=== PATIENT | male | born 2000 | race Caucasian/White ===

== ENCOUNTER 2024-02-21 19:50 | Emergency (ER) | payer BC, SELFPAY ==
[2024-02-21 19:54] VITALS: BP 117/77
[2024-02-21 22:37] LABS: Urine Albumin Negative (Neg - Trace); Urine Bilirubin Negative (Negative); Urine Character Clear (Clear); Urine Color Yellow; Urine Glucose Negative (Negative); Urine Ketone Negative (Negative); Urine Leukocyte Negative (Negative); Urine Nitrite Negative (Negative); Urine Occult Blood Negative (Negative); Urine Urobilinogen 2+ (Neg - 1+)
--- NOTE | 2024-02-21 23:28 | ED.GENMED ---
History of Present Illness
General
Chief Complaint: Male Genito-Urinary Symptoms
Source: patient
Exam Limitations: none
Time Seen by Provider: 02/21/24 22:27
Nursing documentation reviewed up to this point in time: agreed with
History of Present Illness
History of Present Illness:
Patient is a 23-year-old male who presents to the emergency department complaining of right testicular pain that started over the past few days but got rather intense this evening. Patient denies any dysuria, hematuria, frequency or urgency.
Patient denies any flank pain patient does state he has some pain going into the right inguinal region. Patient denies any recent illnesses or injuries. Patient denies any previous history of similar episodes. Patient does have a child. Patient
denies any weight loss. Patient denies any fever or chills.
Past History
Past History
ED Past Medical History: None
Social History
Tobacco: Non-smoker
Review of Systems
Review of Systems
All Other Systems: ROS reviewed and negative except as documented in HPI and ROS
Constitutional: Denies fever, weight loss or chills
ABD/GI: Reports abdominal pain; Denies nausea, vomiting, diarrhea or anorexia
: Reports other (Right testicular pain); Denies dysuria, frequency, flank pain, difficulty voiding, urgency, bleeding, dark urine or discharge
Musculoskeletal: Denies back pain
Skin: Reports no symptoms
Phy Exam
Physical Exam
Physical Exam:
Physical Exam
General: No apparent distress, alert and appropriate, well nourished, well hydrated
HENT: Normocephalic, supple with no lymphadenopathy, no thyromegaly
Eyes: Clear sclera, conjuctiva without injection
Abdomen: Soft, nontender, no organomegaly, no CVA tenderness, BS good. No inguinal hernia. Circumcised penis with both testicles descended and positive cremasteric reflexes bilaterally. However the patient does have a
varicocele on the right. No testicular masses or tenderness
Neuro: Alert and oriented x 3, CN II - XII intact, no motor focality, no cerebellar dysfunction
Skin: no rash
Psychiatric: well kept. interactive and cooperative
Extremities: No edema, cyanosis, tenderness, Good and equal peripheral pulses.
Course
Orders/Labs/Results
Orders:
Orders
02/21/24 19:53
Scrotum US [US Scrotum] Urgent
Comment:
Reason For Exam: right testicle pain for 12 hours
02/21/24 22:25
Urinalysis Reflex To Culture Urgent
Date Specimen was Collected: 02/21/24
Time Specimen was Collected: 19:54
Abnormal Lab Results
02/21/24
22:25
Urine Urobilinogen 2+ A
(Neg - 1+)
Vital Signs
Initial and Last Documented VS:
Initial Vital Signs
Temp Pulse Resp BP Pulse Ox
98.5 F 84 18 117/77 97
02/21/24 19:54 02/21/24 19:54 02/21/24 19:54 02/21/24 19:54 02/21/24 19:54
Last Documented Vital Signs
Temp Pulse Resp BP Pulse Ox
98.5 F 84 18 117/77 97
02/21/24 19:54 02/21/24 19:54 02/21/24 19:54 02/21/24 19:54 02/21/24 19:54
*Radiology
Radiology exam reviewed: radiology read reviewed (Varicocele on the right)
*Pulse Oximetry
Patient hypoxic: no
*EKG
Interpreted by ED Provider?: NA
*[employer] Interpretation
Rate: [employer]- N/A
*Critical Care Note
Total Time (30-74mins, 75-104mins- exclusive of procedures): Not Applicable
ED Attending Note
-
Portions of this chart may have been created with voice recognition software.� Occasional wrong word or��sound alike� substitutions may have occurred due to the inherent limitations of voice recognition software.
Discharge Plan
Departure
Patient Disposition: Home (Routine Discharge)
Date of Disposition: 02/21/24
Time of Disposition: 23:28
Patient with high blood pressure during this ER visit?: No
Condition: Good
Covid-19: Not Applicable
Discharge Problem:
Right varicocele
Instructions: Hydrocele/Varicocele (DC)
Referrals:
Omkar Amaya Jr., MD [Active] - Follow up in 5-7 days
Activity Restrictions/Additional Instructions:
Make sure to wear an athletic supporter or other garment keeps testicles drawing up close to the body. Ibuprofen 600 mg every 6 hours for pain. Any problems please return
Interventions
Interventions:
*Risk Screen - Suicide Last Done: 02/21/24 19:54
*General Assessment Last Done: 02/21/24 19:54
*Neglect/Abuse Screening Last Done: 02/21/24 19:54
*ED COVID-19 Vaccine History Last Done: 02/21/24 19:54
ED-Male Genitourinary Assessment Last Done: 02/21/24 22:26
Discharge Date and Time
Print Language: LITHUANIAN
== END 2024-02-21 23:35 | disposition home or self-care (01) ==
LOC: EMR 19:50
PROVIDERS: EMERGENCY PHYSICIAN Emergency Medicine
DX: I86.1 Scrotal varices (principal)
CPT/HCPCS: 99284; 76870; 81003; 93976

== ENCOUNTER 2024-05-18 17:44 | Emergency (ER) | payer BC, SELFPAY ==
[2024-05-18 17:47] VITALS: BP 130/77
--- NOTE | 2024-05-18 19:09 | ED.GENMED ---
History of Present Illness
General
Chief Complaint: Musculo-Skeletal Complaint
Source: patient
Exam Limitations: none
Time Seen by Provider: 05/18/24 18:41
History of Present Illness
History of Present Illness:
23yo right hand dominant male with no significant past medical history presenting for evaluation of right wrist pain. Pain initially started about 2 weeks ago. He had 1 day of pain which seem to subside. Pain was mild up until yesterday. Patient
was doing work around the home yesterday and pain started to worsen after this. Pain is primarily located on the ulnar aspect of the wrist but is also present at the base of the thumb. He denies any direct trauma or falls. No paresthesias. He
has not been taking anything [id number]. His main concern is that he has a fracture. He works in industrial maintenance repairer.
Past History
Past History
ED Past Medical History: None
Social History
Tobacco: Non-smoker
Phy Exam
General Physical Exam
General Presentation: well appearing and no apparent distress
General age: appears stated age
General Skin: warm and dry
General Habitus: normal
General Mental: alert
ENT Exam
ENT Exam: normocephalic
Musculoskeletal Exam
Musculoskeletal Exam: other (R wrist: Mild soft tissue swelling noted without deformity. +Tenderness to both the radial and ulnar aspect of the wrist. ROM intact although pain is elicited with supination/pronation. Motor and sensation intact in
radial, ulnar, and median nerve distribution. 2+ radial pulse. )
Skin Exam
Skin Exam: normal color and warm/dry
Psychiatric Exam
Psychiatric Exam: normal mood/affect
Course
Orders/Labs/Results
Orders:
Orders
05/18/24 17:49
CR Wrist - Right Min 2 Views Urgent
Comment:
Reason For Exam: pain
05/18/24 19:11
[place] Wrist Right-Tx ONCE
Vital Signs
Initial and Last Documented VS:
Initial Vital Signs
Temp Pulse Resp BP Pulse Ox
97.8 F 76 16 130/77 99
05/18/24 17:47 05/18/24 17:47 05/18/24 17:47 05/18/24 17:47 05/18/24 17:47
Last Documented Vital Signs
Temp Pulse Resp BP Pulse Ox
97.8 F 76 16 130/77 99
05/18/24 17:47 05/18/24 17:47 05/18/24 17:47 05/18/24 17:47 05/18/24 17:47
MDM/Problems Addressed
Differential Diagnosis Includes:
23yoM here with R wrist pain. Started 2 weeks ago but worsening since doing house work yesterday. Denies trauma but does use his hand a lot for work. There is mild swelling on exam without deformity. ROM is normal although there is pain elicited
with supination/pronation. RUE is neurovascularly intact. Differential diagnosis includes: sprain, tendonitis, fracture, no clinical evidence of septic arthritis
X-rays obtained which are negative for acute findings. Suspect tendonitis from overuse. Supportive care discussed including RICE and PRN ibuprofen. Wrist brace provided for comfort. Advised f/u with hand surgery if symptoms persist. He was
discharged in stable condition.
*Critical Care Note
Total Time (30-74mins, 75-104mins- exclusive of procedures): Not Applicable
ED Attending Note
-
Portions of this chart may have been created with voice recognition software.� Occasional wrong word or��sound alike� substitutions may have occurred due to the inherent limitations of voice recognition software.
Discharge Plan
Departure
Patient Disposition: Home (Routine Discharge)
Date of Disposition: 05/18/24
Time of Disposition: 19:11
Patient with high blood pressure during this ER visit?: No
Discharge Problem:
Acute pain of right wrist
Instructions: Muscle, joint, and bone pain - Discharge instructions
Referrals:
NONE,* [Family Provider] -
Zbigniew Goodman MD [Active] -
Activity Restrictions/Additional Instructions:
Apply ice to affected area and rest. Take ibuprofen 600mg every 6 hours as needed for pain. Wear wrist brace for comfort.
Please follow-up with hand surgery/orthopedics if your symptoms persist.
Interventions
Interventions:
*Risk Screen - Suicide Last Done: 05/18/24 17:47
*General Assessment Last Done: 05/18/24 17:47
*Neglect/Abuse Screening Last Done: 05/18/24 17:47
*Nursing Disposition Last Done: 05/18/24 19:40
ED-Musculoskeletal Assessment Last Done: 05/18/24 18:40
Discharge Date and Time
Discharge Date/Time: 05/18/24 19:40
Print Language: JAPANESE
== END 2024-05-18 19:40 | disposition home or self-care (01) ==
LOC: EMR 17:44
PROVIDERS: EMERGENCY PHYSICIAN Emergency Medicine
DX: M25.531 Pain in right wrist (principal)
CPT/HCPCS: 99283; 29125; 73100

== ENCOUNTER → 2025-02-10 15:16 | Outpatient (REF) | payer BC, SELFPAY | LOC: RAD 15:16 | PROVIDERS: ATTENDING PHYSICIAN Orthopaedic Surgery Hand Surgery; FAMILY PHYSICIAN Nurse Practitioner Primary Care | DX: S63.591A Other specified sprain of right wrist, initial encounter (principal); S69.91XA Unspecified injury of right wrist, hand and finger(s), initial encounter | CPT/HCPCS: 70030 ==